=== PATIENT | male | born 1960 | race Caucasian/White ===

== ENCOUNTER 2024-10-05 08:53 | Outpatient (CLI) | payer MEDICARE, BC, SELFPAY | END 2024-10-05 08:54 | disposition home or self-care (01) | PROVIDERS: PCP Family Medicine; Visit Provider Family Medicine | DX: M19.032 Primary osteoarthritis, left wrist (principal); E55.9 Vitamin D deficiency, unspecified; I10 Essential (primary) hypertension; Z12.5 Encounter for screening for malignant neoplasm of prostate | CPT/HCPCS: 80048; 80061; 85025; G0103 ==

== ENCOUNTER 2024-10-12 06:05 | Day surgery (SDC) | payer MEDICARE, BC, SELFPAY ==
[2024-10-12] VITALS (8 sets, daily range): BP systolic 115–163; BP diastolic 51–72; PULSE 58–75; RESP 16; TEMP 36.4–36.6; O2SAT 95–97; BMI 26.3
[2024-10-12] MEDS: SODIUM CHLORIDE 0.9 % (FLUSH) 10 ML SYRINGE IVF (07:00)
[2024-10-12] MEDS: LACTATED RINGERS 1000 ML 1,000 ML 100 ML IV (07:00)
--- NOTE | 2024-10-12 07:07 | W.PM.H&PU ---
History & Physical Update History & Physical Update H&P Reviewed and patient assessed: No changes noted
[2024-10-12] MEDS: MIDAZOLAM HCL 1 MG/ML inj IVP (07:08)
--- NOTE | 2024-10-12 07:25 | SUR.PREOP ---
TIME?OUT:?0708 PT/RN/MDA?VERIFICATION?OF?SURGICAL?SITE,?PROCEDURE,?AND?CONSENT OBTAINED?PRIOR?TO?INVASIVE?PROCEDURE.
--- NOTE | 2024-10-12 08:39 | PM.ORPRC ---
Procedure Note Date of procedure: 10/12/24 Procedure: PREOPERATIVE DIAGNOSES: 1. Left distal radius fracture intraarticular with comminution and dorsal angulation/displacement - unstable; 3+parts POSTOPERATIVE DIAGNOSES: 1. Left distal radius fracture intraarticular with comminution and dorsal angulation/displacement - unstable; 3+parts NAME OF OPERATION: 1. Left distal radius open reduction with internal fixation of intraarticular fracture (3+ parts) 2. Intraoperative fluoroscopy operated and interpreted by Abdulaziz De Oliveira M.D. for intraoperative evaluation of fracture reduction and implant positioning. Fluoroscopy time was 44 seconds. SURGEON: Abdulaziz De Oliveira MD INDUSTRIAL DIAMOND POLISHER: Joel Gonzalez - Of note, an title i assistant was critical for this case to aide in patient positioning, limb manipulation, tissue retraction, closure, and splinting. ANESTHESIA: Supraclavicular block + MAC EBL: 5 mL IMPLANTS: Synthes dual column volar locking plate with 2.4 proximal locking screws and distal locking pegs. TOURNIQUET: 42 minutes at 250 torr. INDICATIONS: The patient is a pleasant, 63-year-old male who sustained a left wrist injury after a fall. They had difficulty with use of the extremity and deformity. Workup included xrays which revealed an unstable fracture. Given these findings, surgery was recommended to stablize the fracture. FINDINGS: Closed, comminuted, displaced intra-articular 3+ part distal radius fracture. PROCEDURE: Following a thorough discussion of risks, benefits, and alternatives, consent was obtained and the operative extremity was marked. The patient was brought to the operating room and placed supine on the operating table. Induction of anesthesia was achieved. Appropriate time out was performed identifying proper patient, site and procedure. 2 g IV Ancef was administered within 1 hour of incision preoperatively. The left upper extremity was prepped and draped in the appropriate sterile fashion using ChloraPrep prep. The limb was exsanguinated and the tourniquet inflated. A longitudinal incision was made overlying the FCR tendon. Sharp incision through skin and subcutaneous tissue allowed identification of the FCR tendon. The superficial sheath was sharply divided, the tendon retracted ulnarly, and the deep fascial sheath also released. The FPL was retracted ulnarly and the pronator quadratus was sharply released from the radial border of the radius and subperiosteally elevated. The fracture was encountered and cleared of interposed periosteum / fracture hematoma. A reduction was performed and the appropriate plate selected. Temporary stabilization allowed C-arm fluoroscopy to confirm proper fracture reduction and plate positioning. The oblong hole was filled with a nonlocking screw initially, but this was found to be displacing the fracture. Therefore, eventually the primary distal fragment was stabilized with locking pegs followed by the proximal shaft stabilized with locking screws. Fluoroscopic was obtained throughout the case. This was operated and interpreted by me real time. This imaging confirmed the improved position and showed the fracture to be stable along with hardware in acceptable position. At this stage, the wound was thoroughly irrigated with normal saline. Closure performed with 0 Vicryl for the pronator quadratus, followed by deflation of the tourniquet. All major bleeding points were cauterized. Closure was then completed with 3-0 Vicryl for the subcutaneous, and 4-0 statafix for subcuticular closure. Dressings were applied along with a volar/dorsal splint. The patient was awoken from anesthesia and transferred to PACU in stable condition. PLAN: 1. Elevate operative extremity. 2. Ice, acetominphen or ibuprofen PRN. 3. Oxycodone for pain as needed. 4. Follow up with PA visit in 10-16 days for wound check and splint removal. Transition to short-arm cast. Removal of immobilization at the 3 week sari postop (therefore return for cast removal at the 3 week sari) and transition to a wrist brace. Initiate OT thereafter.
--- NOTE | 2024-10-12 09:01 | P.ANES_ITS ---
Anesthesia Charges Start Date/Time Anesthesia Start Date: 10/12/24 Anesthesia Start Time: 07:27 Stop Date/Time Anesthesia Stop Date: 10/12/24 Anesthesia Stop Time: 09:02 Coding CPT Codes CPT Codes: ANESTH LOWER ARM SURGERY - 39167 ([id number]) P2 - PATIENT W/MILD SYST DISEASE, QK - PIPING DRAFTER 2-4 CNCRNT ANES PROC, QX - BATTERBOARD SETTER SVC W/ MD MED DIRECTION
--- NOTE | 2024-10-12 09:01 | W.ANESCHARGE ---
Anesthesia Charges Start Date/Time Anesthesia Start Date: 10/12/24 Anesthesia Start Time: 07:27 Stop Date/Time Anesthesia Stop Date: 10/12/24 Anesthesia Stop Time: 09:02 Coding CPT Codes CPT Codes: ANESTH LOWER ARM SURGERY - 52172 ([id number]) P2 - PATIENT W/MILD SYST DISEASE, QK - CATTLE BRANDER 2-4 CNCRNT ANES PROC, QX - HARDWOOD FLOOR INSTALLATION HELPER SVC W/ MD MED DIRECTION
--- NOTE | 2024-10-12 09:17 | P.ANES_ITS ---
Anesthesia Charges Start Date/Time Anesthesia Start Date: 10/12/24 Anesthesia Start Time: 07:27 Stop Date/Time Anesthesia Stop Date: 10/12/24 Anesthesia Stop Time: 09:02 Coding CPT Codes CPT Codes: ANESTH LOWER ARM SURGERY - 42181 ([id number]) QX - BULL BUCKER SVC W/ MD MED DIRECTION, QK - DIRECTOR OF ONCOLOGY 2-4 CNCRNT ANES PROC, P2 - PATIENT W/MILD SYST DISEASE
--- NOTE | 2024-10-12 09:17 | W.ANESCHARGE ---
Anesthesia Charges Start Date/Time Anesthesia Start Date: 10/12/24 Anesthesia Start Time: 07:27 Stop Date/Time Anesthesia Stop Date: 10/12/24 Anesthesia Stop Time: 09:02 Coding CPT Codes CPT Codes: ANESTH LOWER ARM SURGERY - 63798 ([id number]) QX - SENSITIZED PAPER TESTER SVC W/ MD MED DIRECTION, QK - DATA ENTRY MANAGER 2-4 CNCRNT ANES PROC, P2 - PATIENT W/MILD SYST DISEASE
--- NOTE | 2024-10-12 09:18 | W.PM.NB ---
Nerve Block Nerve Block Time Seen by Provider: 07:10 Date Seen: 10/12/24 Type of block requested by surgeon for post-operative analgesia: axillary Side: left Time out performed: Yes Verification of patient name: Yes Verification of date of : Yes Site marking: site marked Name of person performing procedure: Andry Continuous monitoring Was continuous monitoring of O2 sat, B/P, rubber off, recorded every 15 minutes?: Yes Procedure Checklist: sterile prep, needles and gloves Ultrasound guided. Images saved: Yes Medications given in 5ml increments after negative aspiration: Ropivicaine %: 0.5 mL: 30 Needle gauge: 22 Patient tolerated procedure well: Yes Additional comments: Needle noted adjacent to nerve Block Charges Block Charge (with Pro Fee): Brachial Plexus Use of Ultrasound Machine for Block: Yes- US Guidance/pain block
== END 2024-10-12 10:14 | disposition home or self-care (01) ==
PROVIDERS: PCP Family Medicine; Visit Provider Orthopaedic Surgery Sports Medicine
PROC: (CPT 25575; principal; 2024-10-12 07:30)
DX: S52.572A Other intraarticular fracture of lower end of left radius, initial encounter for closed fracture (principal); G89.18 Other acute postprocedural pain
CPT/HCPCS: 25609; 01830; 64415; 73110; 76000; 76942; C1713; J0690; J1100; J2250; J2371; J2405; J2704; J2795; J3010; J7120

== ENCOUNTER 2025-02-10 07:30 | Outpatient (RCR) | payer MEDICARE, BC, SELFPAY ==
--- NOTE | 2024-11-18 10:37 | OT.OPOE ---
OT Outpatient Ortho Eval OT Outpatient Ortho Eval* Start: 11/17/24 18:42 Freq: Status: Active Protocol: Document 11/18/24 08:10 AMB (Rec: 11/18/24 10:35 AMB [id number]) E-signed By Alexandra Salas, OTR/L, CLT, MEDTR[employer] TECHNICIAN OT OP Ortho Eval Details Complexity Complexity Low Insurance Information Insurance Medicare B Information Insurance SOC: 11/18/24 Information Comments UPOC due 02/16/25 Outpatient History/Precautions Current Condition/Medical Diagnosis Referring Provider Dr De Oliveira Medical Diagnoses Z98.890 S/P LUE ORIF Treatment Diagnosis R53.1 Weakness RUE M25.632 Stiffness LUE wrist Date of Onset DOI: 10/07/24, DOS: 10/12/24 Medical Conditions Heart Condition,Metal Implants,Arthritis Other Conditions PMH (reviewed and copied from ortho chart): Active Problems (Updated 10/09/24 @ 21:44 by Donnie Krueger MD) Status post wrist surgery (Acute) 9 days postoperative left distal radius ORIF 3+ part ( date of surgery 10/12/2024) Z98.890 - Other specified postprocedural states (ICD-10 ) Vitamin D deficiency (Acute) E55.9 - Vitamin D deficiency, unspecified (ICD-10) Primary hypertension (Acute) I10 - Essential (primary) hypertension (ICD-10) Rosacea (Acute) L71.9 - Rosacea, unspecified (ICD-10) LBBB (left bundle branch block) (Acute) I44.7 - Left bundle-branch block, unspecified (ICD-10) Aortic regurgitation (Acute) I35.1 - Nonrheumatic aortic (valve) insufficiency (ICD- 10) Fracture of left distal radius (Acute) Date of injury 10/02/2024; with hematoma block and closed reduction with manipulation 10/02/2024, [place], [place] 10/02/24 S52.502A - Unspecified fracture of the lower end of left radius, initial encounter for closed fracture (ICD -10) Medical History (Updated 10/09/24 @ 21:44 by Donnie Krueger MD) Primary hypertension I10 - Essential (primary) hypertension (ICD-10) Vitamin D deficiency E55.9 - Vitamin D deficiency, unspecified (ICD-10) Chronic gingivitis, plaque induced K05.10 - Chronic gingivitis, plaque induced (ICD-10) Rosacea L71.9 - Rosacea, unspecified (ICD-10) LBBB (left bundle branch block) I44.7 - Left bundle-branch block, unspecified (ICD-10) Aortic regurgitation I35.1 - Nonrheumatic aortic (valve) insufficiency (ICD- 10) Surgical History (Updated 10/21/24 @ 09:44 by Peter Toscano PA-C) History of oral surgery Z98.890 - Other specified postprocedural states (ICD-10 ) History of bilateral cataract extraction Z98.41 - Cataract extraction status, right eye (ICD-10) Z98.42 - Cataract extraction status, left eye (ICD-10) Medical/Functional History Medical History Yes Reviewed Social History 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 Pt denies any other injuries. Pt was seen in the local ER and eventually seen in orthopedics back home, here in [place]. Pt underwent ORIF with Dr De Oliveira on 10/12 with surgical dressings removed on 11/04 and he was placed in a OTS splint and referred to OT for rehabilitation. 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 Pt states he has been avoiding use of his left hand. Pt has not been needing any pain meds for a couple of weeks. Pain Assessment Pain Pain Yes Pain Comments 10/18/24 Pt states his pain on average is 2/10 at it's worst, described at aching, occasionally sharp. Goniometric Comments Goniometric Comments Goniometric Comments 10/18/24 Pt demonstrates full AROM throughout BUE with the exception of his LUE forearm, wrist, and hand which are as follows: Forearm: pro/sup= 50/45 Wrist: Flex/Ext= 35/20 UD/RD= 12/10 Hand: Composite Fist= -20cm from tip of MF to DPC Opposition= Tip of SF with great effort Hand Pinch/Pediatric Nurse Strength Comments Comments 11/18/24 Too early for strength testing OT Objective Data Hand Hand Dominance Right Skin/Wounds/Edema Comments 11/18/24 Incisional area is well healed, small scabbed areas remain over incision, no s/s of infection, mild to moderate swelling is noted in the volar wrist and throughout pt's hand. Sensation Sensation Assessment 11/18/24 Pt has occasional tingling throughout all Summary Comments digits, states this has improved quite a bit and only occurs on occasion. OT Problems Problems Problems Decreased Strength,Decreased Range of Motion,Decreased Dexterity,Pain,Decreased Coordination,Lifting,Gripping, Pinching Problems Comments Difficulty with holding / using hand and power tools, lifting auto parts Other Problems Opening Containers Patient Potential Good Assessment Assessment Assessment Pt is a very pleasant 64yo truck mechanic referred to OT for rehabilitation following LUE DR roman with ORIF on 10/12/24 . Over-all, pt doing ok but has significant weakness, limitations and swelling in his LUE which makes it quite difficult to perform his work duties as well as any other ADL/IADL that requires gripping, lifting or use of his LUE. Pt will benefit from skilled OT intervention to address impairments and restore full, pain-free use of the LUE. Occupational Therapy Treatment Plan - OP Potential Rehabilitation Good Potential Set Goals Goals Set with Yes Patient Goals Goals By 01/12/25, pt will: 1. Pt will be independent and compliant with HEP in order to resume full, pain-free use of the involved UE. By 02/16/25, pt will: 2. Pt will demonstrate full, pain-free AROM of the involved UE in order to improve ability to grasp and hold. 3. Pt will demonstrate pain-free wordpress developer and pinch strength comparable to the uninvolved side in order to improve functional grasp, hold, reach, and lifting ability needed to complete self-care, leisure tasks, and work activities. Treatment Plan Treatment Plan Evaluation,Edema Control,Joint Mobilization,Manual Therapy,Splinting,Ultrasound,Wound Care/Scar Management ,Therapeutic Exercise,Therapeutic Activities,Self Care/ Home Management,Education Expected Frequency 1-2x Week Expected Duration 12 weeks Home Program Home Program Home Program Initiated Home Program 11/18/25 Pt was provided training and practice in the Specifics following HEP. Following demo, pt is able to complete exs with minimal cues. Pt was provided with written instructions for all exs to use at home. Access Code: [email or web address] URL: [email or web address] Date: 11/18/2024 Prepared by: Savannah Salas Program Notes Be gentle, if you have more pain / swelling, you may need to decrease your efforts or repetitions / sessions .? Exercises - Seated Full Fist AROM - 2-3 x daily - 7 x weekly - 10 reps - Finger Spreading - 2-3 x daily - 7 x weekly - 1 sets - 10 reps - Wrist Flexion Extension AROM - 2-3 x daily - 7 x weekly - 1 sets - 10 reps - Thumb Opposition - 2-3 x daily - 7 x weekly - 1 sets - 10 reps - Seated Wrist Radial and Ulnar Deviation AROM - 2-3 x daily - 7 x weekly - 1 sets - 10 reps - Standing Forearm Pronation and Supination AROM - 2-3 x daily - 7 x weekly - 1 sets - 10 reps Certification Certification Statement I Certify That: Therapy Services Provided,Therapy Plan Established, Therapy Plan Reviewed Certification Information Clinic ID # [id number] Initial 11/18/24 Certification Date Recertification Due 02/16/25 Date Provider Signature Yes Required Provider Signature POC & Medical Necessity Shows Agreement With Physician NPI Number Write NPI# Here Physician Comment/ Comment or Changes Change Physician Signature Please Sign/Date Here & Date Requested
== END 2025-02-10 09:42 | disposition home or self-care (01) ==
PROVIDERS: PCP Family Medicine; Visit Provider Physician Assistant Surgical
DX: Z48.89 Encounter for other specified surgical aftercare (principal); Z51.89 Encounter for other specified aftercare
CPT/HCPCS: 97110; 97140; 97165; X5282